=== PATIENT | female | born 1965 | race Caucasian/White ===

== ENCOUNTER → 2019-11-21 11:32 | Outpatient (BNVA) | payer MEDICAID, SELFPAY | PROVIDERS: Family Provider Registered Nurse; PCP Family Medicine; Visit Provider Nurse Practitioner | DX: F43.12 Post-traumatic stress disorder, chronic (principal); F45.0 Somatization disorder; F17.210 Nicotine dependence, cigarettes, uncomplicated | CPT/HCPCS: 99214 ==

== ENCOUNTER → 2020-02-13 07:55 | Outpatient (BNVA) | payer MEDICAID, SELFPAY | PROVIDERS: Family Provider Registered Nurse; PCP Family Medicine; Visit Provider Nurse Practitioner | DX: F43.12 Post-traumatic stress disorder, chronic (principal); F45.0 Somatization disorder | CPT/HCPCS: 99213 ==

== ENCOUNTER → 2020-05-15 10:00 | Outpatient (BNVA) | payer MEDICAID, SELFPAY | PROVIDERS: Family Provider Registered Nurse; PCP Family Medicine; Visit Provider Nurse Practitioner | DX: F43.12 Post-traumatic stress disorder, chronic (principal); F45.0 Somatization disorder; F17.210 Nicotine dependence, cigarettes, uncomplicated | CPT/HCPCS: 99213 ==

== ENCOUNTER → 2020-08-13 08:17 | Outpatient (BNVA) | payer MEDICAID, SELFPAY | PROVIDERS: Family Provider Registered Nurse; PCP Family Medicine; Visit Provider Nurse Practitioner | DX: F43.12 Post-traumatic stress disorder, chronic (principal); F45.0 Somatization disorder; F17.210 Nicotine dependence, cigarettes, uncomplicated | CPT/HCPCS: 99213 ==

== ENCOUNTER → 2020-10-06 00:01 | Outpatient (BNVA) | payer MEDICAID, SELFPAY | PROVIDERS: Family Provider Registered Nurse; PCP Family Medicine; Visit Provider Registered Nurse | DX: I10 Essential (primary) hypertension (principal); E78.5 Hyperlipidemia, unspecified; F17.210 Nicotine dependence, cigarettes, uncomplicated; Z79.899 Other long term (current) drug therapy; E03.9 Hypothyroidism, unspecified; M79.7 Fibromyalgia; K21.9 Gastro-esophageal reflux disease without esophagitis | CPT/HCPCS: 80053; 80061; 84443; 85025 ==

== ENCOUNTER → 2020-11-12 08:00 | Outpatient (BNVA) | payer MEDICAID, SELFPAY | PROVIDERS: Family Provider Registered Nurse; PCP Family Medicine; Visit Provider Nurse Practitioner | DX: F43.12 Post-traumatic stress disorder, chronic (principal); F45.0 Somatization disorder; F17.210 Nicotine dependence, cigarettes, uncomplicated | CPT/HCPCS: 99214 ==

== ENCOUNTER → 2020-11-28 10:08 | Outpatient (BNVA) | payer MEDICAID, SELFPAY | PROVIDERS: Family Provider Registered Nurse; PCP Family Medicine; Visit Provider Internal Medicine | DX: K21.9 Gastro-esophageal reflux disease without esophagitis (principal) | CPT/HCPCS: 87635 ==

== ENCOUNTER 2020-12-05 08:22 | Day surgery (SDC) | payer MEDICAID, SELFPAY ==
[2020-12-03 14:16] VITALS: BMI 29.3
[2020-12-05] MEDS: sodium chloride 0.9% 1,000 ML 30 ML IV (08:45)
--- NOTE | 2020-12-05 09:11 | W.PM.OPSUD ---
Surgery/Procedure H&P Update DATE OF PROCEDURE: December 05, 2020 DATE H&P PERFORMED: 11/27/20 PREOP DIAGNOSIS: t PLANNED PROCEDURE: Operation Date: 12/05/20 09:30 Proposed Procedures p EGD 53484 k21.9(Not Applicable) - Sincere Felton MD
--- NOTE | 2020-12-05 09:31 | P.ANESASSM_ITS ---
Pre-Anesthetic Assessment Pre-Anesthetic Assessment: Height/Weight: Height 1.73 m Weight 87.543 kg Preop Diagnosis: PUD Proposed Procedure: Operation Date: 12/05/20 09:30 Proposed Procedures p EGD 95456 k21.9(Not Applicable) - Sincere Felton MD Was Beta Calos taken within 24 hours: N/A Was Clonidine taken within 24 hours: N/A Social: Social History: Tobacco and No alcohol Exam: Pre-Anes Outpt Exam: alert, oriented x 3, clear to auscultation bilaterally and regular rate & rhythm Airway: Submandibular: WNL Cervical ROM: WNL MP: 2 History/ROS: No significant history except as noted Pulmonary: Pulmonary: Asthma and COPD CV/HEM: CV/HEM: HTN : : None reported Hepatic: Hepatic: None reported GI: GI: GERD Metabolic: Metabolic: Hyperlipidemia and Thyroid Musc/skel: Musc/skel: OA/DJD Comments: cervical fusion Neuropsych: Neuropsych: Anxiety and Neuropathy Anesthetic Plan: ASA status: 2 Anesthesia: Anesthesia Evaluation and MAC Risk of > 500 ml blood loss (7ml/kg in children): No PFSH Anesthesia PFSH: Medical History Chronic idiopathic urticaria Essential hypertension Gastroesophageal reflux disease Nicotine dependence, cigarettes, uncomplicated Post-traumatic stress disorder, chronic Somatization disorder Social History (Updated 11/27/20 @ 09:[address]) Smoking and tobacco status: current every day smoker cigarettes Packs smoked per day: 1.5 Smoking risk assessment/counseling performed?: Yes Tobacco counseling given: co unseling >3 minutes History of recent travel: No Data Anesthesia Cardiac Studies: No Data to Display
[2020-12-05 10:01] VITALS: BP 110/76; PULSE 79; RESP 16; TEMP 36.1; O2SAT 93
[2020-12-05 10:15] VITALS: BP 125/90; PULSE 80; RESP 16; O2SAT 93
--- NOTE | 2020-12-05 13:36 | ANE.PACU2 ---
Inpatient post-anesthesia follow up: Airway intact: Yes Vital signs: Temperature 97 F Pulse Rate 80 Respiratory Rate 16 Blood Pressure 125/90 Pulse Oximetry 93 Oxygen Delivery Me thod Room Air Oxygen Flow Rate Fraction of Inspir ed Oxygen Hydration adequate: Yes Nausea and vomiting: No Pain level: 1 Mental status: Baseline
[2020-12-06 11:58] LABS: H. Pylori / CLO Test Negative
== END 2020-12-05 10:25 | disposition home or self-care (01) ==
PROVIDERS: PCP Family Medicine; Visit Provider Internal Medicine
PROC: 0DJ08ZZ Inspection of Upper Intestinal Tract, Via Natural or Artificial Opening Endoscopic (ICD-10-PCS; CPT 43235; principal; 2020-12-05 09:30)
DX: K21.9 Gastro-esophageal reflux disease without esophagitis (principal); K22.70 Barrett's esophagus without dysplasia; L53.9 Erythematous condition, unspecified; K29.70 Gastritis, unspecified, without bleeding; L50.1 Idiopathic urticaria; I10 Essential (primary) hypertension; F17.210 Nicotine dependence, cigarettes, uncomplicated; J44.9 Chronic obstructive pulmonary disease, unspecified; E78.5 Hyperlipidemia, unspecified; M19.90 Unspecified osteoarthritis, unspecified site; Z98.1 Arthrodesis status
CPT/HCPCS: 43239; 87077; 88305; 96360; 96361; J2704; J7030

== ENCOUNTER → 2021-02-11 08:03 | Outpatient (BNVA) | payer MEDICAID, SELFPAY | PROVIDERS: PCP Family Medicine; Visit Provider Nurse Practitioner | DX: F43.12 Post-traumatic stress disorder, chronic (principal); F45.0 Somatization disorder; F17.210 Nicotine dependence, cigarettes, uncomplicated | CPT/HCPCS: 99214 ==

== ENCOUNTER → 2021-05-06 08:09 | Outpatient (BNVA) | payer MEDICAID, SELFPAY | PROVIDERS: PCP Registered Nurse; Visit Provider Nurse Practitioner | DX: F43.12 Post-traumatic stress disorder, chronic (principal); F45.0 Somatization disorder; F17.210 Nicotine dependence, cigarettes, uncomplicated | CPT/HCPCS: 99214 ==

== ENCOUNTER → 2021-08-11 08:20 | Outpatient (BNVA) | payer MEDICAID, SELFPAY | PROVIDERS: PCP Registered Nurse; Visit Provider Nurse Practitioner | DX: F43.12 Post-traumatic stress disorder, chronic (principal); F45.0 Somatization disorder; F17.210 Nicotine dependence, cigarettes, uncomplicated | CPT/HCPCS: 99214 ==

== ENCOUNTER → 2021-11-03 07:33 | Outpatient (BNVA) | payer MEDICAID, SELFPAY | PROVIDERS: PCP Registered Nurse; Visit Provider Nurse Practitioner | DX: F43.12 Post-traumatic stress disorder, chronic (principal); F45.0 Somatization disorder; F17.210 Nicotine dependence, cigarettes, uncomplicated | CPT/HCPCS: 99214 ==

== ENCOUNTER → 2021-11-10 15:24 | Outpatient (BNVA) | payer MEDICAID, SELFPAY | PROVIDERS: PCP Registered Nurse; Visit Provider Registered Nurse | DX: I10 Essential (primary) hypertension (principal); M25.9 Joint disorder, unspecified; Q79.60 Ehlers-Danlos syndrome, unspecified; E55.9 Vitamin D deficiency, unspecified; E03.9 Hypothyroidism, unspecified; E78.5 Hyperlipidemia, unspecified | CPT/HCPCS: 80053; 80061; 82306; 84443; 85025; 85651; 86038; 86140; 86431 ==

== ENCOUNTER → 2022-01-04 15:01 | Outpatient (BNVA) | payer MEDICAID, SELFPAY | PROVIDERS: PCP Registered Nurse; Visit Provider Registered Nurse | DX: J18.9 Pneumonia, unspecified organism (principal) | CPT/HCPCS: 85025 ==

== ENCOUNTER 2022-01-15 13:46 | Outpatient (CLI) | payer MEDICAID, SELFPAY ==
--- NOTE | 2022-01-15 13:51 | MM_ITS ---
WS: [id number] BILATERAL 3D TOMOSYNTHESIS DIGITAL SCREENING MAMMOGRAPHY WITH CAD CLINICAL INFORMATION: SCREENING HISTORY: Screening mammogram. No current complaints. COMPARISON: September 26, 2019 TECHNIQUE: Bilateral CC and MLO views. FINDINGS: Scattered fibroglandular densities bilaterally. A few incidental punctate calcifications. No suspicio us focal mass, asymmetry, calcifications, or architectural distortion. No evidence of malignancy. MM/[place] [id number] IMPRESSION: BI-RADS: 2-Benign FOLLOW UP: 1 Year Follow-up Recommend return to annual screening mammography.
== END 2022-01-15 13:47 | disposition home or self-care (01) ==
LOC: RADSHAW 13:48
PROVIDERS: PCP Registered Nurse; Visit Provider Registered Nurse
DX: Z12.31 Encounter for screening mammogram for malignant neoplasm of breast (principal)
CPT/HCPCS: 77063; 77067

== ENCOUNTER → 2022-01-29 14:49 | Outpatient (BNVA) | payer MEDICAID, SELFPAY | PROVIDERS: PCP Registered Nurse; Visit Provider Nurse Practitioner | DX: F43.12 Post-traumatic stress disorder, chronic (principal); F45.0 Somatization disorder; F17.210 Nicotine dependence, cigarettes, uncomplicated | CPT/HCPCS: 99214 ==

== ENCOUNTER → 2022-11-11 14:07 | Outpatient (BNVA) | payer MEDICAID, SELFPAY | PROVIDERS: PCP Registered Nurse; Visit Provider Nurse Practitioner Family | DX: R53.1 Weakness (principal); R26.89 Other abnormalities of gait and mobility; R47.89 Other speech disturbances | CPT/HCPCS: 80053 ==

== ENCOUNTER 2022-11-26 16:16 | Outpatient (CLI) | payer MEDICAID, SELFPAY ==
[2022-11-26] MEDS: iohexol 350 mg/mL 500 mL Btl (per mL) IV (16:57)
--- NOTE | 2022-11-26 17:00 | CT_ITS ---
WS: [id number] CT HEAD TECHNIQUE: Noncontrast and contrast-enhanced CT of the head. CLINICAL INFORMATION: R47.89 - Other speech disturbances COMPARISON: MRI 2017 DLP: 2005.[address] scans at [facility] use at least one of these dose optimization techniques: automated e xposure control; mA and/or kV adjustment per patient size (includes targeted exams where dose is matc hed to clinical indication); or iterative reconstruction. FINDINGS: No evidence of intracranial hemorrhage or mass effect. Ventricular system and basal cisterns are pope nt. Normal benson-white differentiation. Mild small vessel changes. No significant parenchymal volume l oss. Paranasal sinuses and mastoid air cells are well aerated. No hydrocephalus. No abnormal enhancing int racranial lesions. Incidental prominent perivascular space RIGHT basal ganglia is unchanged since 201 7. No other suspicious findings. CT/CT head wo/w con [id number] IMPRESSION: 1. No evidence of intracranial hemorrhage or mass effect. 2. Mild small vessel changes with no significant parenchymal volume loss. 3. No abnormal intracranial enhancement or enhancing lesions. 4. No other suspicious findings.
== END 2022-11-26 16:17 | disposition home or self-care (01) ==
LOC: RAD 16:16
PROVIDERS: PCP Registered Nurse; Visit Provider Nurse Practitioner Family
DX: R47.89 Other speech disturbances (principal); R26.89 Other abnormalities of gait and mobility; R53.1 Weakness
CPT/HCPCS: 70470; Q9967

== ENCOUNTER → 2022-12-07 10:04 | Outpatient (BNVA) | payer MEDICAID, SELFPAY | PROVIDERS: PCP Registered Nurse; Visit Provider Nurse Practitioner | DX: Z79.899 Other long term (current) drug therapy (principal) | CPT/HCPCS: 80061; 83036 ==

== ENCOUNTER → 2023-02-21 09:09 | Outpatient (BNVA) | payer MEDICAID, SELFPAY | PROVIDERS: PCP Registered Nurse; Visit Provider Psychiatry & Neurology Neurology | DX: R41.3 Other amnesia (principal); R26.89 Other abnormalities of gait and mobility; R53.1 Weakness; R55 Syncope and collapse; R42 Dizziness and giddiness; R47.89 Other speech disturbances; H53.8 Other visual disturbances; F17.210 Nicotine dependence, cigarettes, uncomplicated; I20.9 Angina pectoris, unspecified; Z98.1 Arthrodesis status; J44.9 Chronic obstructive pulmonary disease, unspecified; E03.9 Hypothyroidism, unspecified; Z87.311 Personal history of (healed) other pathological fracture | CPT/HCPCS: 99203 ==

== ENCOUNTER 2023-03-09 13:52 | Outpatient (CLI) | payer MEDICAID, SELFPAY ==
--- NOTE | 2023-03-09 14:45 | USCV_ITS ---
Itzel St Age: 58 Gender: F : 1965 Exam Date: 03/09/2023 14:16 Ordering Phys: Jenniffer Jarvis MD Technologist: LESVIA [place] [facility] [place]: [place] Loss Risk Factors: Previous Vascular Surgery: Right Brachial BP: / Left Brachial BP: / Right Left Velocity (cm/s) Spectral Plaque Velocity (cm/s) Spectral Plaque Syst/Diast Broadening Syst/Diast Broadening 51.90/ 13.10 Prox CCA 71.60 / 20.40 57.00/ 12.90 Mid CCA 64.20 / 19.50 51.30/ 13.10 Distal CCA 50.10 / 19.90 42.10/ 16.40 Prox ICA 61.80 / 28.30 62.40/ 32.90 Mid ICA 74.90 / 28.90 58.80/ 30.20 Distal ICA 48.90 / 22.80 63.10 ECA 76.90 1.09 ICA/CCA 1.05 Antegrade Vertebral Antegrade 46.80/ 18.40 cm/s 38.50/ 20.80 cm/s Tri Subclavian Tri 86.30 94.00 CONCLUSIONS Right ICA stenosis <50%. Mild atheromatous plaque right carotid bulb/ICA. Left ICA stenosis <50%. Mild atheromatous plaque left carotid bulb/ICA. Normal antegrade Doppler flow noted in the right vertebral artery. Normal antegrade Doppler flow noted in the left vertebral artery. Ritchie Roland MD (Electronically Signed) Final Date: 09 March 2023 17:33 S
== END 2023-03-09 13:53 | disposition home or self-care (01) ==
LOC: RAD 13:56
PROVIDERS: PCP Registered Nurse; Visit Provider Specialist
DX: R41.3 Other amnesia (principal); I65.23 Occlusion and stenosis of bilateral carotid arteries
CPT/HCPCS: 93880

== ENCOUNTER 2023-03-24 15:19 | Outpatient (CLI) | payer MEDICAID, SELFPAY ==
--- NOTE | 2023-03-24 16:00 | MR_ITS ---
WS: [id number] MRI HEAD WITH CONTRAST TECHNIQUE: Sagittal T1, T2 axial, T2 axial FLAIR, axial susceptibility weighted imaging, axial diffus ion weighted images, and coronal T2 images were obtained. Pre and post-T1 axial and post T1 coronal i mages. ADC and FSPGR images. CLINICAL INFORMATION: R41.3 - Other amnesia COMPARISON: CT November 26, 2022 and MRI 2017 FINDINGS: No evidence of restricted diffusion to suggest acute ischemia. Ventricular system and basal cisterns are patent. Mild patchy supratentorial white matter changes likely due to small vessel disease in a p atient this age. Mild parenchymal volume loss. Small vessel changes have progressed slightly compared to 2017. Parenchymal volume loss appears progressed. Normal posterior fossa. Normal vascular flow voids at the skull base. No extra-axial fluid collection s. No evidence of mass or mass effect. Paranasal sinuses and mastoid air cells are well aerated. Mild mucosal thickening mastoid air cells bilaterally. Normal posterior nasopharynx. No hemosiderin on the susceptibly weighted images. Normal optic chiasm and pituitary infundibulum. Ca vernous sinuses and Meckel's cave appear normal. Temporal lobes and hippocampal formations are normal in appearance. No abnormal gadolinium enhancement. No enhancing intracranial lesions. Normal visualized dural venous sinuses. MR/MR head wo/w con [id number] IMPRESSION: 1. No evidence of restricted diffusion to suggest acute ischemia. 2. Mild patchy supratentorial white matter changes mainly in a periventricular distribution minimally progressed compared to 2017. Mild parenchymal volume lo ss has progressed. 3. No hemosiderin on susceptibly weighted images. 4. No abnormal gadolinium enhancement. 5. Mild mucosal thickening mastoid air cells. 6. No other suspicious findings.
[2023-03-24] MEDS: gadobenate dimeglumine 20 mL vial IV (16:46)
[2023-03-24 17:20] LABS: INR 0.93 (0.8-1.2)
[2023-03-24 17:47] LABS: 25 Hydroxy Vitamin D 28 ng/mL (30-100); Homocysteine 10.58; Magnesium 2.3 mg/dL (1.7-2.3); Vitamin B12 812 pg/mL (232-1245)
[2023-03-24 18:45] LABS: Folate Level > 20.0 ng/mL (4.8-37.3)
[2023-03-28 13:33] LABS: Anti-Double Strand DNA AB 2 IU/mL
[2023-03-29 20:24] LABS: Lupus DRVVT 1:1 Mix NOT CORRECTED (CORRECTED); Lupus DRVVT Confirm POSITIVE (NEGATIVE)
[2023-03-29 23:29] LABS: PROTEIN S, ACTIVITY 77 % normal (60-140); PTT-LA-Screen 37 sec (< OR = 40)
[2023-03-30 07:05] LABS: Methylmalonic Acid 268 nmol/L (87-318)
[2023-03-30 08:50] LABS: Treponema pallidum Ab NON-REACTIVE (NON-REACTIVE)
[2023-03-31 07:39] LABS: PROTEIN C, ACTIVITY 138 % normal (70-180)
[2023-03-31 07:51] LABS: Antithrombin III Activity 150 % normal (80-135)
[2023-03-31 15:15] LABS: Beta 2 Glycoprotein IGA 18.7 U/mL (<20.0); Beta 2 Glycoprotein IGM 81.9 U/mL (<20.0)
[2023-03-31 18:00] LABS: PROTHROMBIN (FACTOR II) 20210G NEGATIVE
[2023-03-31 19:30] LABS: Factor 5 Leiden Mutation NEGATIVE
== END 2023-03-24 15:20 | disposition home or self-care (01) ==
PROVIDERS: Psychiatry & Neurology Neurology; PCP Registered Nurse; Visit Provider Specialist
DX: R26.89 Other abnormalities of gait and mobility (principal); R53.1 Weakness; R41.3 Other amnesia; R55 Syncope and collapse
CPT/HCPCS: 36415; 70553; 81241; 82306; 82607; 82746; 83090; 83735; 83921; 85210; 85300; 85303; 85306; 85610; 85613; 85730; 86146; 86147; 86225; 86780; A9577

== ENCOUNTER → 2023-03-28 12:43 | Outpatient (BNVA) | payer MEDICAID, SELFPAY | PROVIDERS: PCP Registered Nurse; Visit Provider Psychiatry & Neurology Neurology | DX: R55 Syncope and collapse (principal) | CPT/HCPCS: 95813 ==

== ENCOUNTER 2023-04-13 13:41 | Oncology outpatient (recurring) (ONCR) | payer MEDICAID, SELFPAY | END 2023-05-12 23:59 | disposition home or self-care (01) | PROVIDERS: PCP Registered Nurse; Visit Provider Internal Medicine Medical Oncology | DX: R41.3 Other amnesia (principal); R06.09 Other forms of dyspnea; H54.7 Unspecified visual loss; R26.89 Other abnormalities of gait and mobility; D68.59 Other primary thrombophilia; R55 Syncope and collapse; R42 Dizziness and giddiness; Q79.60 Ehlers-Danlos syndrome, unspecified; F17.210 Nicotine dependence, cigarettes, uncomplicated; R60.0 Localized edema; I20.9 Angina pectoris, unspecified; Z98.1 Arthrodesis status; Z98.890 Other specified postprocedural states; R76.0 Raised antibody titer | CPT/HCPCS: 99203; 99212 ==

== ENCOUNTER → 2023-09-01 15:28 | Outpatient (BNVA) | payer MEDICAID, SELFPAY | PROVIDERS: PCP Registered Nurse; Visit Provider Registered Nurse | DX: I10 Essential (primary) hypertension (principal); E03.9 Hypothyroidism, unspecified; Z12.31 Encounter for screening mammogram for malignant neoplasm of breast; J44.9 Chronic obstructive pulmonary disease, unspecified | CPT/HCPCS: 80053; 80061; 84443; 85025 ==

== ENCOUNTER 2024-03-01 18:07 | Inpatient (IN) | payer MEDICAID, SELFPAY ==
[2024-03-01 18:14] VITALS: BP 139/112; PULSE 91; RESP 24; TEMP 36.9; O2SAT 92; BMI 27.3
--- NOTE | 2024-03-01 18:17 | ECG_ITS ---
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 Measurements Intervals [place] Rate: 90 P: 69 AK: 196 QRS: 30 QRSD: 70 T: 53 QT: 339 QTc: 416 Interpretive Statements SINUS RHYTHM MINIMAL ST DEPRESSION [0.025+ mV ST DEPRESSION] Compared to ECG 12/10/2018 21:57:12 ST (T wave) deviation now present Myocardial infarct finding no longer present Electronically Signed On 03-02-2024 13:39:26 CDT by Piter Epstein M.D. [email or web address]/store/[id number] f
--- NOTE | 2024-03-01 18:19 | XRR_ITS ---
PROCEDURE INFORMATION: Exam: XR Chest Exam date and time: 03/01/2024 6:48 PM Age: 59 years old Clinical indication: Cough and dyspnea; Patient HX: Smoker; Additional info: SOB TECHNIQUE: Imaging protocol: Radiologic exam of the chest. Views: 1 view. COMPARISON: CT angio chest PE protcl [id number] 12/10/2018 11:18 PM FINDINGS: Lungs: Increased interstitial markings in the lung bases are nonspecific but can be seen the setting of bronchitis, pulmonary vascular congestion, viral infection and small-vessel airways disease. Pleural spaces: Unremarkable. No pleural effusion. No pneumothorax. Heart/Mediastinum: Unremarkable. No cardiomegaly. Bones/joints: Unremarkable. XR/XR chest 1V portable [id number] IMPRESSION: Increased interstitial markings in the lung bases are nonspecific but can be seen the setting of bronchitis, pulmonary vascular congestion, viral infection and small-vessel airways disease.
[2024-03-01 18:21] VITALS: PULSE 92; RESP 16; O2SAT 92
--- NOTE | 2024-03-01 18:21 | ED_ITS ---
HPI - SOB/Dyspnea 2 General: Chief Complaint: Shortness of Breath/Dyspnea Stated Complaint: SOB Time Seen by Provider: 03/01/24 18:14 Source: patient Mode of arrival: ambulatory Limitations: no limitations History of Present Illness: HPI Narrative: 59-year-old female has a history of COPD states that over the last week and a half she has been having cough congestion and chest pains been sharp with increased wheezing and shortness of breath. Patient here is 98% on room air. She denies any fevers denies any vomiting or diarrhea. Associated symptoms: Reports chest pain; Deny abdominal pain, fever(s), nausea or vomiting Review of Systems 2 Const: Denies: fever(s), chills, body aches or change in appetite Eyes: Denies: blurry vision or eye discomfort ENMT: Denies: throat pain or dental pain Card: Reports: chest pain Resp: Reports: dyspnea, non-productive cough and wheezing GI: Denies: abdominal pain, nausea, vomiting or diarrhea : Denies: dysuria Musc: Denies: neck pain or back pain Skin/Breast: Denies: rash Neuro: Denies: headache(s) PFSH ED 2 PFSH: Medical History On combination antipsychotic drug therapy Marcos-Danlos disease Psychiatric care Hypothyroid Gastroesophageal reflux disease Chronic idiopathic urticaria Essential hypertension Nicotine dependence, cigarettes, uncomplicated Somatization disorder Post-traumatic stress disorder, chronic Family History Grandmother Dementia AD (Alzheimer's disease) Lung disease Diabetes Mother Dementia AD (Alzheimer's disease) Stroke Lung disease Diabetes Brother CAD (coronary artery disease) Other Suicide Social History Smoking and tobacco/nicotine status: current every day tobacco/nicotine user cigarettes Packs smoked per day: 1.5 Substance/Drug Use: never Adopted: No Caregiver/support person: No Lives independently: No Household members: spouse Sexually active: Yes Do you think of yourself as: Straight/Heterosexual Current gender identity: Female Physical Exam 2 Const: COMMON NORMALS: no acute distress, patient oriented x3 and healthy appearing HENMT: COMMON NORMALS: normocephalic and atraumatic HEAD & SCALP: n ormocephalic and atraumatic Eye: COMMON NORMALS: Equal, round and reactive pupils present and EOMs intact bilaterally PUPIL: Yes Equal, round and reactive pupils present Neck/C-Spine: COMMON NORMALS: full ROM and supple Chest: COMMONS NORMALS: normal inspection of the chest Resp: COMMON NORMALS: No retractions and No use of accessory muscles A USCULTATION: wheezes Cardio: COMMON NORMALS: regular rate, regular rhythm and No murmurs present (Cardio) RATE: regular rate RHYTHM: regular rhythm GI: COMMON NORMALS: Normal to inspection, nondistended, normoactive bowel sounds present, Soft to palpation, non-tender and no masses PALPATION: Yes Soft to palpation Extremity: COMMON NORMALS: normal to inspection and full ROM Neuro: COMMON NORMALS: patient oriented x3, moves all extremities and no focal motor deficits Psych: COMMON NORMALS: mental status grossly normal, Normal thought process present and cooperative THOUGHT PROCESS: Normal thought process present Skin: COMMON NORMALS: no rashes or lesions noted and no wounds GENERAL SKIN EXAM: no rashes or lesions noted Course 2 Vital Signs: Vital signs: Vital Signs Temperature 98.4 F 03/01/24 18:14 Pulse Rate 93 03/01/24 18:44 Respiratory Rate 16 03/01/24 18:21 Blood Pressure 133/103 03/01/24 18:44 Pulse Oximetry 90 03/01/24 18:44 Oxygen Delivery Me thod Room Air 03/01/24 18:44 MDM - SOB/Dyspnea Medical Decision Making Patient presents here with COPD exacerbation she is hypoxic here requiring oxygen does not wear oxygen at baseline spoke to the hospitalist and will admit at this time. Medical Records I reviewed the patient's medical records. Lab Data I reviewed the patient's lab results. 03/01/24 18:20 03/01/24 18:20 Labs/Radiology: Radiology Impressions Chest X-Ray 03/01/24 18:19 IMPRESSION: Increased interstitial markings in the lung bases are nonspecific but can be seen the setting of bronchitis, pulmonary vascular congestion, viral infection and small-vessel airways disease. Laboratory Results WBC 7.48 10^3/uL (3.29-11.43) 03/01/24 18:20 RBC 5.28 10^6/uL (3.85-5.65) 03/01/24 18:20 Hgb 13.40 g/dL (11.27-16.99) 03/01/24 18:20 Hct 41.4 % (36-47) 03/01/24 18:20 MCV 78.4 fl (85-98) L 03/01/24 18:20 MCH 25.4 pg (27-33) L 03/01/24 18:20 MCHC 32.4 g/dL (30-55) 03/01/24 18:20 RDW 18.7 % (12.1-15.1) H 03/01/24 18:20 Plt Count 270 10^3/cmm (157-399) 03/01/24 18:20 MPV 9.6 fL (7.4-10.4) 03/01/24 18:20 Neut % (Auto) 58.6 % 03/01/24 18:20 Lymph % (Auto) 30.3 % 03/01/24 18:20 [place] % (Auto) 7.6 % 03/01/24 18:20 Eos % (Auto) 2.7 % 03/01/24 18:20 Baso % (Auto) 0.7 % 03/01/24 18:20 Neut # (Auto) 4.38 10^3/uL (1.8-7.7) 03/01/24 18:20 Lymph # (Auto) 2.3 10^3/uL (0.8-4.8) 03/01/24 18:20 [place] # (Auto) 0.6 10^3/uL (0.2-0.9) 03/01/24 18:20 Eos # (Auto) 0.2 10^3/uL (0.0-0.8) 03/01/24 18:20 Baso # (Auto) 0.1 10^3/uL (0.0-0.1) 03/01/24 18:20 Nucleated RBC % (auto) 0 % 03/01/24 18:20 Nucleated RBCs # 0.0 /100WBC 03/01/24 18:20 Sodium 139 mmol/L (136-145) 03/01/24 18:20 Potassium 3.9 mmol/L (3.5-5.1) 03/01/24 18:20 Chloride 102 mmol/L (98-107) 03/01/24 18:20 Carbon Dioxide 23 mmol/L (22-29) 03/01/24 18:20 Anion Gap 17.9 (5-19) 03/01/24 18:20 BUN 9 mg/dL (8-23) 03/01/24 18:20 Creatinine 0.7 mg/dL (0.5-0.9) 03/01/24 18:20 GFR Calculation 85.4 mL/min (90-130) L 03/01/24 18:20 Glucose 122 mg/dL (65-115) H 03/01/24 18:20 Calculated Osmolality 288 mOsm/kg (285-295) 03/01/24 18:20 Calcium 9.6 mg/dL (8.5-10.5) 03/01/24 18:20 Total Bilirubin 0.3 mg/dL (0.15-1.2) 03/01/24 18:20 AST 25 U/L (0-32) 03/01/24 18:20 ALT 22 U/L (0-33) 03/01/24 18:20 Alkaline Phosphatase 108 U/L (35-105) H 03/01/24 18:20 Troponin T Baseline 9 ng/L (0-10) 03/01/24 18:20 Troponin T 120 Minute 8.63 ng/L (0-10) 03/01/24 20:06 Delta Troponin T -0.37 ABS# (0-10) L 03/01/24 20:06 NT-Pro-B Natriuret Pep 104 pg/mL (0-125) 03/01/24 18:20 Total Protein 7.6 g/dL (6.6-8.7) 03/01/24 18:20 Albumin 4.5 g/dL (3.5-5.2) 03/01/24 18:20 Globulin 3.1 g/dL (1.3-4.6) 03/01/24 18:20 All radiology interpretation(s) finalized by discharge EKG Data EKG 1: I personally reviewed and interpreted this EKG as follows: EKG Interpretation Date: 03/01/24 EKG interpretation time: 18:17 Interpretation: nsr hr [address] elevation qrs 70 qtc 387 EKG 2: I personally reviewed and interpreted this EKG as follows: EKG Interpretation Date: 03/01/24 EKG interpretation time: 18:17 Interpretation: nsr hr [address] elevation qrs 70 qtc 387 Discharge Plan Discharge Patient Disposition: Admitted As Inpatient Clinical Impression: Acute exacerbation of chronic obstructive airways disease, Acute respiratory failure with hypoxia Condition: Stable Coding Level of Care Code ED Tool And Die Supervisor for Daina Freeman
[2024-03-01] MEDS: ipratropium-albuterol 3 mL Neb INHALATION (18:23)
[2024-03-01] MEDS: albuterol 2.5 mg/3 mL Neb INHALATION (18:23)
[2024-03-01 18:32] VITALS: PULSE 92
[2024-03-01 18:34] LABS: Basophils # 0.1 10^3/uL (0.0-0.1); Basophils % 0.7 %; Eosinophils # 0.2 10^3/uL (0.0-0.8); Eosinophils % 2.7 %; Hematocrit 41.4 % (36-47); Lymphocytes # 2.3 10^3/uL (0.8-4.8); Lymphocytes % 30.3 %; Mean Corpuscular HGB Conc 32.4 g/dL (30-55); Mean Corpuscular Hemoglobin 25.4 pg (27-33); Mean Corpuscular Volume 78.4 fl (85-98); Mean Platelet Volume 9.6 fL (7.4-10.4); Monocytes # 0.6 10^3/uL (0.2-0.9); Monocytes % 7.6 %; Neutrophils # 4.38 10^3/uL (1.8-7.7); Neutrophils % 58.6 %; Nucleated Red Blood Cells % 0 %; Platelet Count 270 10^3/cmm (157-399); Red Blood Count 5.28 10^6/uL (3.85-5.65); Red Cell Distribution Width 18.7 % (12.1-15.1); White Blood Count 7.48 10^3/uL (3.29-11.43)
[2024-03-01] MEDS: aspirin 325 mg Tablet PO (18:38)
[2024-03-01] MEDS: methylPREDNISolone sod succ 125 mg/2 mL INJ IV (18:38)
[2024-03-01 18:44] VITALS: BP 133/103; PULSE 93; O2SAT 90
[2024-03-01 18:54] LABS: Troponin(5th) Baseline 9 ng/L (0-10)
[2024-03-01 19:17] LABS: Alanine Aminotransferase 22 U/L (0-33); Albumin Level 4.5 g/dL (3.5-5.2); Alkaline Phosphatase 108 U/L (35-105); Anion Gap 17.9 (5-19); Aspartate Amino Transferase 25 U/L (0-32); Blood Urea Nitrogen 9 mg/dL (8-23); Calcium 9.6 mg/dL (8.5-10.5); Carbon Dioxide 23 mmol/L (22-29); Chloride 102 mmol/L (98-107); Globulin 3.1 g/dL (1.3-4.6); Glomerular Filtration Rate 85.4 mL/min (90-130); Glucose 122 mg/dL (65-115); NT Pro B Type Natriuretic Pept 104 pg/mL (0-125); Osmolality Calculated 288 mOsm/kg (285-295); Potassium 3.9 mmol/L (3.5-5.1); Sodium 139 mmol/L (136-145); Total Bilirubin 0.3 mg/dL (0.15-1.2); Total Protein 7.6 g/dL (6.6-8.7)
[2024-03-01 20:31] LABS: Troponin 5 2HR 8.63 ng/L (0-10)
[2024-03-01 20:32] LABS: Troponin 5 2HR Delta -0.37 ABS# (0-10)
--- NOTE | 2024-03-01 20:34 | ECG_ITS ---
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 Measurements Intervals [place] Rate: 75 P: 48 AR: 207 QRS: 28 QRSD: 77 T: 40 QT: 374 QTc: 420 Interpretive Statements SINUS RHYTHM Compared to ECG 03/01/2024 18:17:21 ST (T wave) deviation no longer present Electronically Signed On 03-02-2024 14:00:06 CDT by Piter Epstein M.D. [email or web address] [email or web address] fair[facility] hospitalAOT [employer]/store/OM/[id number]
--- NOTE | 2024-03-01 20:36 | P.HP_ITS ---
Providers/Chief Complaint 2 Primary Care Provider: DENYS Carmona Chief Complaint: SOB History of Present Illness Itzel St is a 59-year-old female with history of COPD,hypertension, hypothyroidism, who presents for further evaluation of worsening shortness of breath, cough, congestion and subjective fever. She does report some chest discomfort in the past week. She denies nausea, vomiting, abdominal pain, dizziness, loss of consciousness or any other symptoms. In the ER, patient was noted to have signs of COPD exacerbation, she received steroids. Chest x-ray showed possible pneumonia , she was given ceftriaxone and azithromycin. Review of Systems 2 Const: Denies: fever(s), chills, body aches or change in appetite Eyes: Denies: blurry vision or eye discomfort ENMT: Denies: throat pain or dental pain Card: Reports: chest pain Resp: Reports: dyspnea, non-productive cough and wheezing GI: Denies: abdominal pain, nausea, vomiting or diarrhea : Denies: dysuria Musc: Denies: neck pain or back pain Skin/Breast: Denies: rash Neuro: Denies: headache(s) Medications/Allergies Home Medications Medication Instructions Recorded Confirmed Last Taken Type loratadine 10 mg tablet 20 mg (2 x 10 mg) PO DAILY #60 tabs 11/27/20 02/14/24 Unknown Rx bisacodyl 5 mg tablet,delayed See Rx Instructions .Route 01/28/22 02/14/24 Unknown Rx release .COMPLEX #30 tabs pantoprazole 40 mg tablet,delayed 40 mg PO DAILY #90 tabs 06/02/23 02/14/24 Unknown Rx release cholecalciferol (vitamin D3) 625 50,000 unit PO .weekly #14 caps 08/29/23 02/14/24 Unknown Rx mcg (25,000 unit) capsule amlodipine 5 mg tablet See Rx Instructions .Route 09/01/23 02/14/24 Unknown Rx .COMPLEX #90 tabs pravastatin 40 mg tablet See Rx Instructions .Route 09/01/23 02/14/24 Unknown Rx .COMPLEX #90 tabs albuterol sulfate 90 mcg/actuation See Rx Instructions .Route 11/09/23 02/14/24 Unknown Rx aerosol inhaler .COMPLEX #18 grams Spiriva with HandiHaler 18 mcg and See Rx Instructions .Route 12/22/23 02/14/24 Unknown Rx inhalation capsules (tiotropium .COMPLEX #30 caps bromide) isosorbide mononitrate 30 mg See Rx Instructions .Route 12/30/23 02/14/24 Unknown Rx tablet,extended release 24 hr .COMPLEX #90 tabs clonazepam 1 mg tablet 1 mg PO QDAY PRN anxiety #15 tabs 01/25/24 02/14/24 Unknown Rx quetiapine 200 mg tablet (Seroquel) 200 mg PO .QHS #30 tabs 01/25/24 02/14/24 Unknown Rx bupropion HCl 150 mg 24 hr tablet, 150 mg PO QAM #30 tabs 01/27/24 02/14/24 Unknown Rx extended release (Wellbutrin XL) nitroglycerin 0.3 mg sublingual See Rx Instructions .Route 01/27/24 02/14/24 Unknown Rx tablet .COMPLEX #100 tabs hydroxyzine HCl 25 mg tablet 25 mg PO DAILY PRN anxiety #30 tabs 02/14/24 02/14/24 Unknown Rx montelukast 10 mg tablet See Rx Instructions .Route 02/21/24 Unknown Rx .COMPLEX #90 tabs celecoxib 100 mg capsule See Rx Instructions .Route 02/22/24 Unknown Rx .COMPLEX #60 caps gabapentin 600 mg tablet See Rx Instructions .Route 02/22/24 Unknown Rx .COMPLEX #90 tabs levothyroxine 50 mcg tablet See Rx Instructions .Route 03/01/24 Unknown Rx .COMPLEX #30 tabs Allergies Allergy/AdvReac Type Severity Reaction Status Date / Time adhesive tape Allergy Mild unknown Verified 02/14/24 15:25 buspirone Allergy Mild ALGY-Rash Verified 02/14/24 15:25 soap Allergy Mild unknown Verified 02/14/24 15:25 sumatriptan [From Imitrex] Allergy unknown Verified 02/14/24 15:25 venlafaxine [From Effexor] Allergy unknown Verified 02/14/24 15:25 PFSH Acute 2 PFSH: Medical History On combination antipsychotic drug therapy Marcos-Danlos disease Psychiatric care Hypothyroid Gastroesophageal reflux disease Chronic idiopathic urticaria Essential hypertension Nicotine dependence, cigarettes, uncomplicated Somatization disorder Post-traumatic stress disorder, chronic Family History Grandmother Dementia AD (Alzheimer's disease) Lung disease Diabetes Mother Dementia AD (Alzheimer's disease) Stroke Lung disease Diabetes Brother CAD (coronary artery disease) Other Suicide Social History Smoking and tobacco/nicotine status: current every day tobacco/nicotine user cigarettes Packs smoked per day: 1.5 Substance/Drug Use: never Adopted: No Caregiver/support person: No Lives independently: No Household members: spouse Sexually active: Yes Do you think of yourself as: Straight/Heterosexual Current gender identity: Female Vitals/I&O/Wt Last Vital Signs Temp 98.4 F 03/01/24 18:14 Pulse 93 03/01/24 18:44 Resp 16 03/01/24 18:21 BP 133/103 03/01/24 18:44 Pulse Ox 90 03/01/24 18:44 O2 Del Method Room Air 03/01/24 18:44 Weight last 48 hrs Weight 81.647 kg Physical Exam 2 Const: COMMON NORMALS: no acute distress, patient oriented x3 and alert HENMT: COMMON NORMALS: normocephalic, atraumatic, external ears normal, Normal external nose present, moist oral mucous membranes and oropharynx normal HEAD & SCALP: normocephalic and atraumatic NOSE: Normal external nose present E XTERNAL EAR: Yes external ears normal Eye: COMMON NORMALS: Equal, round and reactive pupils present, EOMs intact bilaterally, conjunctivae normal and no scleral icterus CONJUNCTIVA: Yes conjunctivae normal PUPIL: Yes Equal, round and reactive pupils present Neck/C-Spine: COMMON NORMALS: full ROM, no lymphadenopathy and no JVD Chest: COMMONS NORMALS: normal inspection of the chest Resp: OTHER: Severely diminished breath sounds bilaterally, mild expiratory wheezes, no crackles Cardio: COMMON NORMALS: no JVD, regular rate, regular rhythm, S1 normal heart sound present and S2 normal heart sound present RATE: regular rate RHYTHM: regular rhythm HEART SOUNDS: S1 normal heart sound present and S2 normal heart sound present GI: COMMON NORMALS: Normal to inspection, nondistended, normoactive bowel sounds present, Soft to palpation and non-tender PALPATION: Yes Soft to palpation Extremity: COMMON NORMALS: normal to inspection and no pedal edema Neuro: COMMON NORMALS: patient oriented x3 SENSORIUM/ORIENTATION: Yes alert OTHER: No gross focal deficits Data 03/02/24 02:40 03/02/24 01:04 Micro: Microbiology 03/01/24 18:19 Blood Culture - Preliminary Blood SPECIMEN COLLECTED 03/01/24 18:10 Blood Culture - Preliminary Blood SPECIMEN COLLECTED A&P Assessment and plan (1) Acute respiratory failure with hypoxia: - In the setting of COPD exacerbation, possible pneumonia -Patient requiring 2 L supplemental oxygen -Wean oxygen as tolerated -Check dimer (2) Acute exacerbation of chronic obstructive airways disease: # Suspected pneumonia - Patient's lungs sounds severely diminished -Chest x-ray shows increased interstitial markings in the lung bases which is nonspecific, may be due to viral pneumonia versus small vessel airway disease vs bronchitis -Check respiratory viral panel, COVID-19, influenza screen -Check procalcitonin -Continue ceftriaxone and azithromycin started in the ER -Solu-Medrol 40 mg every 6 hours, DuoNebs -Continue to monitor closely (3) Hypothyroid: - Resume levothyroxine Qualifiers: Hypothyroidism type: acquired Qualified Code(s): E03.9 - Hypothyroidism, unspecified (4) Essential hypertension: - Resume antihypertensives (5) Post-traumatic stress disorder, chronic: - Resume antipsychotics Attestations 2 Medical Necessity Statement*: Patient admitted for COPD exacerbation, her care is expected to cross greater than 2 midnights Coding Level of Care Code Acute Code for Chg Fwd Diagnoses Acute respiratory failure with hypoxia J96.01 Acute exacerbation of chronic obstructive airways disease J44.1 Acquired hypothyroidism E03.9 Hypothyroidism type: acquired Essential hypertension I10 Post-traumatic stress disorder, chronic F43.12
[2024-03-01] MEDS: cefTRIAXone 1,000 MG in sodium chloride 0.9% (plus) 50 ML 100 MG IV (21:15)
[2024-03-01] MEDS: azithromycin 500 MG in sodium chloride 0.9% 250 ML 250 MG IV (21:43)
[2024-03-01 22:10] VITALS: BP 168/94; PULSE 74; RESP 18; O2SAT 92
[2024-03-01 22:33] LABS: D Dimer 0.88 ug/mLFEU (0-0.59)
[2024-03-01 22:40] LABS: Procalcitonin 0.03 ng/mL (0-0.5)
[2024-03-01] MEDS: enoxaparin 40 mg/0.4 mL Syringe SUBCUT (23:26)
[2024-03-01] MEDS: quetiapine 100 mg Tablet 200 MG PO (23:26)
[2024-03-01] MEDS: isosorbide mononitrate ER 30 mg Tablet PO (23:27)
[2024-03-01 23:45] VITALS: BMI 29.3
[2024-03-02] VITALS (16 sets, daily range): BP systolic 139–156; BP diastolic 8–95; PULSE 78–104; RESP 15–20; TEMP 36.7–37.4; O2SAT 88–95
[2024-03-02] MEDS: methylPREDNISolone sod succ 40 mg/mL INJ IVP ×4 (00:37→18:11)
[2024-03-02 01:51] LABS: Troponin 5 6HR 6.87 ng/L (0-10)
[2024-03-02 01:53] LABS: Blood Urea Nitrogen 8 mg/dL (8-23); Calcium 9.1 mg/dL (8.5-10.5); Carbon Dioxide 24 mmol/L (22-29); Chloride 105 mmol/L (98-107); Creatinine Clr Calc Pharmacy 102.3049; Glomerular Filtration Rate 85.4 mL/min (90-130); Glucose 228 mg/dL (65-115); Osmolality Calculated 300 mOsm/kg (285-295); Sodium 142 mmol/L (136-145)
[2024-03-02 02:02] LABS: Troponin 5 6HR Delta -2.13 ng/L (0-12)
[2024-03-02 02:04] LABS: Anion Gap 17.5 (5-19); Potassium 4.5 mmol/L (3.5-5.1)
--- NOTE | 2024-03-02 02:04 | ECG_ITS ---
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 Measurements Intervals [place] Rate: 85 P: 66 [place]: 194 QRS: 70 QRSD: 79 T: 70 QT: 371 QTc: 443 Interpretive Statements SINUS RHYTHM NONSPECIFIC T-WAVE ABNORMALITY Compared to ECG 03/01/2024 20:34:24 T-wave abnormality now present Electronically Signed On 03-02-2024 14:01:14 CDT by Piter Epstein M.D. [id number]
[2024-03-02] MEDS: acetaminophen 325 mg Tablet 650 MG PO ×2 (02:17→19:55)
[2024-03-02] MEDS: CLONazepam 1 mg Tablet PO ×2 (02:17→20:59)
[2024-03-02 02:55] LABS: Basophils % 0.1 %; Lymphocytes # 0.7 10^3/uL (0.8-4.8); Lymphocytes % 11.1 %; Mean Corpuscular HGB Conc 32.1 g/dL (30-55); Mean Corpuscular Hemoglobin 25.6 pg (27-33); Mean Corpuscular Volume 79.9 fl (85-98); Mean Platelet Volume 9.9 fL (7.4-10.4); Monocytes % 0.4 %; Neutrophils # 5.88 10^3/uL (1.8-7.7); Neutrophils % 88.1 %; Nucleated Red Blood Cells % 0 %; Platelet Count 236 10^3/cmm (157-399); Red Blood Count 4.88 10^6/uL (3.85-5.65); Red Cell Distribution Width 18.6 % (12.1-15.1); White Blood Count 6.68 10^3/uL (3.29-11.43)
[2024-03-02 03:13] LABS: Adenovirus Not Detected (NOT DETECT); Chlamydia Pneumoniae Not Detected (NOT DETECT); Coronavirus 229E,HKU1,NL63,OC4 Not Detected (NOT DETECT); Human Metapneumovirus Not Detected (NOT DETECT); Human Rhinovirus/Enterovirus Not Detected (NOT DETECT); Influenza A Not Detected (NOT DETECT); Influenza A H1 Not Detected (NOT DETECT); Influenza A H1-2009 Not Detected (NOT DETECT); Influenza A H3 Not Detected (NOT DETECT); Influenza B Not Detected (NOT DETECT); Mycoplasma Pneumoniae Not Detected (NOT DETECT); Parainfluenza Virus Type 1 Not Detected (NOT DETECT); Parainfluenza Virus Type 2 Not Detected (NOT DETECT); Parainfluenza Virus Type 3 Not Detected (NOT DETECT); Parainfluenza Virus Type 4 Not Detected (NOT DETECT); Respiratory Syncytial Virus A Not Detected (NOT DETECT); Respiratory Syncytial Virus B Not Detected (NOT DETECT); SARS-COV-2 Not Detected (NOT DETECT)
[2024-03-02] MEDS: levothyroxine 50 mcg Tablet PO (06:34)
[2024-03-02] MEDS: amlodipine 5 mg Tablet PO (06:34)
[2024-03-02] MEDS: buPROPion XL (24 HR) 150 mg Tablet PO (06:39)
--- NOTE | 2024-03-02 06:48 | CTR_ITS ---
PROCEDURE INFORMATION: Exam: CTA Chest With Contrast Exam date and time: 03/02/2024 7:43 AM Age: 59 years old Clinical indication: Abnormal findings; Abnormal diagnostic tests; Elevated d-dimer; Additional info: Evaluate for pe, elevated d dimer TECHNIQUE: Imaging protocol: Computed tomographic angiography of the chest with contrast. Exam focused on the arteries. 3D rendering (Not supervised by radiologist): MIP and/or 3D reconstructed images were created by the technologist. Radiation optimization: All CT scans at this facility use at least one of these dose optimization techniques: automated exposure control; mA and/or kV adjustment per patient size (includes targeted exams where dose is matched to clinical indication); or iterative reconstruction. Contrast material: OMNI 350; Contrast volume: 100 ml; Contrast route: INTRAVENOUS (IV); COMPARISON: CT angio chest PE protcl [id number] 12/10/2018 11:18 PM RADIATION DOSE METRICS: Total DLP (mGy-cm): 440.77 FINDINGS: Pulmonary arteries: No pulmonary embolism evident. Aorta: No evidence of thoracic aortic aneurysm. Thyroid: No significant thyroid pathology. Lungs: Severe pulmonary emphysema and diffuse interstitial coarsening 3 mm perifissural nodule left mid lung zone on series 6, image 368 consistent with a small lymph node is not significantly changed. Few other tiny nodules measuring less than 5 mm are also stable consistent with benign pathology (example left upper lobe series 6, image 259 laterally, 3 mm pleural surface right upper lung zone series 6, image 287, etc.). Pleural spaces: No pleural effusion. Heart: Unremarkable. No cardiomegaly. No pericardial effusion. Lymph nodes: Compared with the prior exam, right hilar adenopathy measuring up to 1.7 cm short axis is not significantly changed. Left hilar adenopathy measuring up to 1.3 cm short axis is also stable. Borderline sized subcarinal lymph nodes measuring up to 1.3 cm short axis noted without change. Other sized mediastinal lymph nodes are also unchanged. Stable mildly enlarged left axillary node measuring 1.1 cm short axis. No right axillary adenopathy. Adrenal glands: Stable left adrenal thickening with low attenuation and without dominant nodule likely representing adenomatous hyperplasia. Right adrenal gland unremarkable. A plaque-like area of soft tissue thickening along the right hepatic lobe capsule on series 6, images 509 through 528 measuring up to 5 mm in thickness is not significantly changed, indeterminate by criteria but consistent with benign pathology given stability. Bones/joints: Prior ACDF. Mild degenerative change present in the spine. Soft tissues: Unremarkable. Other findings: Evaluation limited by respiratory degradation. CT/CT angio chest PE protcl [id number] IMPRESSION: 1. No evidence of pulmonary embolism or other acute chest disease. 2. Severe pulmonary emphysema. 3. Small pulmonary nodules consistent with benign pathology again seen. No further follow-up required per Fleischner criteria. 4. Stable mild hilar and borderline mediastinal lymphadenopathy. COMMENTS: The presence of pulmonary emphysema on CT is an independent risk factor for lung cancer. In the absence of a history or active diagnosis of lung cancer, it is recommended that this patient with emphysema be evaluated for enrollment in a low dose CT lung cancer screening program.
[2024-03-02] MEDS: iohexol 350 mg/mL 500 mL Btl (per mL) IV (08:10)
[2024-03-02] MEDS: ipratropium-albuterol 3 mL Neb INHALATION ×4 (08:40→19:52)
--- NOTE | 2024-03-02 09:08 | PC.CHAP ---
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 [] Patient/Family/Request visit [] Outpatient visit [] Follow-up visit [] Physician referral [] Code/Alert [] Routine visit [] Staff referral [] Actively dying [] Patient sleeping [] Family support [] [] Out of room [] Palliative care [] [x] Receiving care in room [] Pre-surgical visit [] Trauma [] Long length of stay [] ICU visit [] Other: Relational/Emotional Strength [] Patient feels connected with others/family/visitors/staff [] Distress [] Loneliness/isolation [] Abandonment Spirituality of Patient [] Person of Angelica [] Attends Yazidism of their Angelica [] Believes in Prayer [] Reads Bible or Zoroastrian materials [] There are Spiritual issues to be addressed Dialysis Rn Interventions [] Prayer [] Active listening [] Non-anxious presence [] Spiritual/emotional support [] Crisis/trauma care [] Spiritual counseling [] Bereavement support [] Provided bereavement packet [] Provided Bible/devotional materials [] Provided toy/stuffed animal, coloring book to patient or family member [] Provided Communion [] Anointing/[place] [] Salvation [] Completed spiritual assessment [] Other: Impact on Illness or Injury [] Angry [] Fearful [] Anxious [] Often cries [] Exhaustion [] Unable to work [] Unable to attend buddhism [] Unable to walk/stand [] Unable to read [] Unable to drive [] Unable to eat/drink [] Unable to sleep [] Unable to be with family [] Patient intubated [] Other: Summary Time spent with patient
[2024-03-02] MEDS: azithromycin 250 mg Tablet 500 MG PO (10:24)
[2024-03-02] MEDS: pantoprazole DR 40 mg Tablet PO (10:24)
[2024-03-02] MEDS: montelukast sodium 10 mg Tablet PO (11:33)
[2024-03-02] MEDS: benzonatate 100 mg Capsule PO (11:36)
[2024-03-02] MEDS: baclofen 10 mg Tablet 20 MG PO (11:36)
--- NOTE | 2024-03-02 14:30 | P.PN_ITS ---
Subjective 2 Subjective: Patient was seen this morning, she reports shortness of breath, wheezing, cough Vitals/I&O/Wt Last Vital Signs Temp 98.2 F 03/02/24 11:51 Pulse 104 H 03/02/24 11:51 Resp 16 03/02/24 11:51 BP 147/8 03/02/24 11:51 Pulse Ox 92 03/02/24 11:51 O2 Del Method Room Air 03/02/24 11:51 O2 Flow Rate 1 03/02/24 08:45 03/01/24 03/02/24 03/02/24 22:59 06:59 14:59 Intake Total 50 / 50 490 / 540 720 / 720 Balance 50 / 50 490 / 540 720 / 720 Weight last 48 hrs Weight 96.162 kg Weight 90.265 kg Weight 81.647 kg Physical Exam 2 Const: COMMON NORMALS: no acute distress and patient oriented x3 Resp: COMMON NORMALS: normal respiratory effort, No retractions and No use of accessory muscles AUSCULTATION: wheezes Cardio: COMMON NORMALS: regular rate, regular rhythm, S1 normal heart sound present and S2 normal heart sound present RATE: regular rate RHYTHM: r egular rhythm HEART SOUNDS: S1 normal heart sound present and S2 normal heart sound present GI: COMMON NORMALS: Normal to inspection, nondistended, normoactive bowel sounds present and non-tender Extremity: COMMON NORMALS: no pedal edema Neuro: COMMON NORMALS: patient oriented x3 Psych: COMMON NORMALS: mental status grossly normal Data 03/02/24 02:40 03/02/24 01:04 Micro: Microbiology 03/01/24 18:19 Blood Culture - Preliminary Blood SPECIMEN COLLECTED 03/01/24 18:10 Blood Culture - Preliminary Blood SPECIMEN COLLECTED A&P Assessment and plan (1) Acute respiratory failure with hypoxia: - In the setting of COPD exacerbation, possible pneumonia -Patient requiring 2 L supplemental oxygen -Wean oxygen as tolerated CTA CT/CT angio chest PE protcl [id number] IMPRESSION: 1. No evidence of pulmonary embolism or other acute chest disease. 2. Severe pulmonary emphysema. 3. Small pulmonary nodules consistent with benign pathology again seen. No further follow-up required per Fleischner criteria. 4. Stable mild hilar and borderline mediastinal lymphadenopathy. (2) Acute exacerbation of chronic obstructive airways disease: # Suspected pneumonia - Patient's lungs sounds severely diminished -Chest x-ray shows increased interstitial markings in the lung bases which is nonspecific, may be due to viral pneumonia versus small vessel airway disease vs bronchitis -Check respiratory viral panel, COVID-19, influenza screen, negative -Continue ceftriaxone and azithromycin started in the ER -Solu-Medrol 40 mg every 6 hours, DuoNebs -Continue to monitor closely (3) Hypothyroid: - Resume levothyroxine Qualifiers: Hypothyroidism type: acquired Qualified Code(s): E03.9 - Hypothyroidism, unspecified (4) Essential hypertension: - Resume antihypertensives (5) Post-traumatic stress disorder, chronic: - Resume antipsychotics Attestations 2 Medical Necessity Statement*: Patient requires hospitalization for pneumonia, COPD exacerbation Diagnoses Acute respiratory failure with hypoxia J96.01 Acute exacerbation of chronic obstructive airways disease J44.1 Acquired hypothyroidism E03.9 Hypothyroidism type: acquired Essential hypertension I10 Post-traumatic stress disorder, chronic F43.12
[2024-03-02] MEDS: gabapentin 300 mg Capsule 600 MG PO ×2 (16:27→20:59)
[2024-03-02] MEDS: isosorbide mononitrate ER 30 mg Tablet PO (18:15)
[2024-03-02] MEDS: quetiapine 100 mg Tablet 200 MG PO (20:59)
[2024-03-02] MEDS: atorvastatin 40 mg Tablet PO (20:59)
[2024-03-02] MEDS: enoxaparin 40 mg/0.4 mL Syringe SUBCUT (21:00)
[2024-03-02] MEDS: cefTRIAXone 1,000 MG in sodium chloride 0.9% (plus) 50 ML 100 MG IV (21:00)
[2024-03-03] VITALS (18 sets, daily range): BP systolic 108–163; BP diastolic 66–105; PULSE 76–99; RESP 17–19; TEMP 36.4–36.9; O2SAT 91–96
[2024-03-03] MEDS: methylPREDNISolone sod succ 40 mg/mL INJ IVP ×5 (00:18→23:50)
[2024-03-03] MEDS: buPROPion XL (24 HR) 150 mg Tablet PO (05:48)
[2024-03-03] MEDS: levothyroxine 50 mcg Tablet PO (05:48)
[2024-03-03] MEDS: amlodipine 5 mg Tablet PO (05:48)
[2024-03-03 06:18] LABS: Basophils % 0.1 %; Hematocrit 38.3 % (36-47); Lymphocytes # 1.1 10^3/uL (0.8-4.8); Mean Corpuscular HGB Conc 32.4 g/dL (30-55); Mean Corpuscular Hemoglobin 26.2 pg (27-33); Mean Corpuscular Volume 80.8 fl (85-98); Mean Platelet Volume 11.4 fL (7.4-10.4); Monocytes # 0.5 10^3/uL (0.2-0.9); Monocytes % 3.2 %; Neutrophils # 13.74 10^3/uL (1.8-7.7); Neutrophils % 89.1 %; Nucleated Red Blood Cells % 0 %; Platelet Count 177 10^3/cmm (157-399); Red Blood Count 4.74 10^6/uL (3.85-5.65); Red Cell Distribution Width 19.9 % (12.1-15.1); White Blood Count 15.43 10^3/uL (3.29-11.43)
[2024-03-03 06:35] LABS: Anion Gap 17.4 (5-19); Blood Urea Nitrogen 12 mg/dL (8-23); Calcium 9.5 mg/dL (8.5-10.5); Carbon Dioxide 22 mmol/L (22-29); Chloride 106 mmol/L (98-107); Creatinine Clr Calc Pharmacy 122.0971; Glucose 149 mg/dL (65-115); Osmolality Calculated 295 mOsm/kg (285-295); Potassium 4.4 mmol/L (3.5-5.1); Sodium 141 mmol/L (136-145)
[2024-03-03] MEDS: benzonatate 100 mg Capsule PO (07:02)
--- NOTE | 2024-03-03 07:08 | ECG_ITS ---
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 Measurements Intervals [place] Rate: 78 P: 63 [place]: 185 QRS: 34 QRSD: 75 T: 67 QT: 353 QTc: 404 Interpretive Statements SINUS RHYTHM WITH OCCASIONAL ECTOPIC PREMATURE COMPLEXES MODERATE ST DEPRESSION [0.05+ mV ST DEPRESSION] Compared to ECG 03/02/2024 02:04:48 ST (T wave) deviation now present T-wave abnormality no longer present Electronically Signed On 03-03-2024 8:10:26 CDT by Piter Epstein M.D. [id number]
[2024-03-03] MEDS: cloNIDine 0.1 mg Tablet 0.100000000000000006 MG PO ×2 (07:25→18:02)
[2024-03-03] MEDS: ipratropium-albuterol 3 mL Neb INHALATION ×4 (08:05→23:10)
[2024-03-03] MEDS: gabapentin 300 mg Capsule 600 MG PO ×3 (08:27→20:45)
[2024-03-03] MEDS: azithromycin 250 mg Tablet 500 MG PO (08:27)
[2024-03-03] MEDS: montelukast sodium 10 mg Tablet PO (08:27)
[2024-03-03] MEDS: pantoprazole DR 40 mg Tablet PO (08:27)
--- NOTE | 2024-03-03 11:42 | P.PN_ITS ---
Subjective 2 Subjective: Patient was seen this morning, continues to complain of wheezing, has a nonproductive cough Vitals/I&O/Wt Last Vital Signs Temp 97.9 F 03/03/24 07:41 Pulse 90 03/03/24 08:15 Resp 18 03/03/24 08:06 BP 163/103 03/03/24 07:41 Pulse Ox 93 03/03/24 08:06 O2 Del Method Nasal Cannula 03/03/24 08:06 O2 Flow Rate 2 03/03/24 08:06 03/02/24 03/03/24 03/03/24 22:59 06:59 14:59 Intake Total 1010 / 1730 360 / 2090 598 / 598 Output Total 1100 / 1100 Balance -90 / 630 360 / 990 598 / 598 Weight last 48 hrs Weight 94.619 kg Weight 96.162 kg Weight 90.265 kg Weight 81.647 kg Physical Exam 2 Const: COMMON NORMALS: no acute distress and patient oriented x3 Resp: COMMON NORMALS: normal respiratory effort, No retractions and No use of accessory muscles AUSCULTATION: crackles and wheezes Cardio: COMMON NORMALS: regular rate, regular rhythm, S1 normal heart sound present and S2 normal heart sound present RATE: regular rate RHYTHM: r egular rhythm HEART SOUNDS: S1 normal heart sound present and S2 normal heart sound present GI: COMMON NORMALS: Normal to inspection, nondistended, normoactive bowel sounds present and non-tender Extremity: COMMON NORMALS: no pedal edema Neuro: COMMON NORMALS: patient oriented x3 Psych: COMMON NORMALS: mental status grossly normal Data 03/03/24 05:45 03/03/24 05:45 Micro: Microbiology 03/01/24 18:19 Blood Culture - Preliminary Blood NEGATIVE TO DATE 03/01/24 18:10 Blood Culture - Preliminary Blood NEGATIVE TO DATE A&P Assessment and plan (1) Acute respiratory failure with hypoxia: - In the setting of COPD exacerbation, possible pneumonia -Patient requiring 2 L supplemental oxygen -Wean oxygen as tolerated CTA CT/CT angio chest PE protcl [id number] IMPRESSION: 1. No evidence of pulmonary embolism or other acute chest disease. 2. Severe pulmonary emphysema. 3. Small pulmonary nodules consistent with benign pathology again seen. No further follow-up required per Fleischner criteria. 4. Stable mild hilar and borderline mediastinal lymphadenopathy. (2) Acute exacerbation of chronic obstructive airways disease: # Suspected pneumonia - Patient's lungs sounds severely diminished -Chest x-ray shows increased interstitial markings in the lung bases which is nonspecific, may be due to viral pneumonia versus small vessel airway disease vs bronchitis -Check respiratory viral panel, COVID-19, influenza screen, negative -Continue ceftriaxone and azithromycin started in the ER -Solu-Medrol 40 mg every 6 hours, DuoNebs -Continue to monitor closely (3) Hypothyroid: - Resume levothyroxine Qualifiers: Hypothyroidism type: acquired Qualified Code(s): E03.9 - Hypothyroidism, unspecified (4) Essential hypertension: - Resume antihypertensives (5) Post-traumatic stress disorder, chronic: - Resume antipsychotics Plan Plan for today continue steroids, antibiotics, monitor respiratory status, blood pressure control Attestations 2 Medical Necessity Statement*: Patient requires hospitalization for acute hypoxic respiratory failure, secondary to COPD, pneumonia Diagnoses Acute respiratory failure with hypoxia J96.01 Acute exacerbation of chronic obstructive airways disease J44.1 Acquired hypothyroidism E03.9 Hypothyroidism type: acquired Essential hypertension I10 Post-traumatic stress disorder, chronic F43.12
[2024-03-03] MEDS: TRAMadol 50 mg Tablet PO (12:59)
[2024-03-03] MEDS: isosorbide mononitrate ER 30 mg Tablet PO (18:02)
[2024-03-03] MEDS: CLONazepam 1 mg Tablet PO (20:45)
[2024-03-03] MEDS: atorvastatin 40 mg Tablet PO (20:45)
[2024-03-03] MEDS: quetiapine 100 mg Tablet 200 MG PO (20:46)
[2024-03-03] MEDS: cefTRIAXone 1,000 MG in sodium chloride 0.9% (plus) 50 ML 100 MG IV (20:47)
[2024-03-03] MEDS: enoxaparin 40 mg/0.4 mL Syringe SUBCUT (20:50)
[2024-03-04] VITALS (22 sets, daily range): BP systolic 121–168; BP diastolic 72–96; PULSE 71–93; RESP 16–20; TEMP 36.4–36.8; O2SAT 90–95
[2024-03-04] MEDS: ipratropium-albuterol 3 mL Neb INHALATION ×6 (04:30→23:20)
[2024-03-04 05:42] LABS: Basophils % 0.1 %; Hematocrit 36.6 % (36-47); Lymphocytes % 7.6 %; Mean Corpuscular HGB Conc 31.4 g/dL (30-55); Mean Corpuscular Hemoglobin 25.6 pg (27-33); Mean Corpuscular Volume 81.5 fl (85-98); Monocytes # 0.4 10^3/uL (0.2-0.9); Monocytes % 2.7 %; Neutrophils # 11.47 10^3/uL (1.8-7.7); Neutrophils % 88.5 %; Nucleated Red Blood Cells % 0 %; Platelet Count 239 10^3/cmm (157-399); Red Blood Count 4.49 10^6/uL (3.85-5.65); Red Cell Distribution Width 19.6 % (12.1-15.1); White Blood Count 12.96 10^3/uL (3.29-11.43)
[2024-03-04] MEDS: levothyroxine 50 mcg Tablet PO (05:44)
[2024-03-04] MEDS: buPROPion XL (24 HR) 150 mg Tablet PO (05:44)
[2024-03-04] MEDS: amlodipine 5 mg Tablet PO (05:44)
[2024-03-04] MEDS: methylPREDNISolone sod succ 40 mg/mL INJ IVP ×2 (05:45→13:03)
[2024-03-04 06:03] LABS: Anion Gap 13.4 (5-19); Blood Urea Nitrogen 18 mg/dL (8-23); Calcium 9.2 mg/dL (8.5-10.5); Carbon Dioxide 25 mmol/L (22-29); Chloride 107 mmol/L (98-107); Creatinine Clr Calc Pharmacy 122.0115; Glucose 157 mg/dL (65-115); Osmolality Calculated 297 mOsm/kg (285-295); Potassium 4.4 mmol/L (3.5-5.1); Sodium 141 mmol/L (136-145)
[2024-03-04] MEDS: cloNIDine 0.1 mg Tablet 0.100000000000000006 MG PO ×2 (09:36→18:00)
[2024-03-04] MEDS: montelukast sodium 10 mg Tablet PO (09:36)
[2024-03-04] MEDS: gabapentin 300 mg Capsule 600 MG PO ×3 (09:36→21:12)
[2024-03-04] MEDS: pantoprazole DR 40 mg Tablet PO (09:37)
[2024-03-04] MEDS: azithromycin 250 mg Tablet 500 MG PO (09:37)
[2024-03-04] MEDS: benzonatate 100 mg Capsule PO ×2 (09:41→21:13)
[2024-03-04] MEDS: acetaminophen 325 mg Tablet 650 MG PO (10:39)
[2024-03-04] MEDS: TRAMadol 50 mg Tablet PO (13:25)
--- NOTE | 2024-03-04 13:42 | P.PN_ITS ---
Subjective 2 Subjective: Patient was seen this morning, she reports persistent wheezing, headache Vitals/I&O/Wt Last Vital Signs Temp 98.2 F 03/04/24 08:00 Pulse 83 03/04/24 11:14 Resp 16 03/04/24 11:07 BP 151/91 03/04/24 09:36 Pulse Ox 90 03/04/24 11:07 O2 Del Method Nasal Cannula 03/04/24 11:07 O2 Flow Rate 1 03/04/24 11:07 03/03/24 03/04/24 03/04/24 22:59 06:59 14:59 Intake Total 1200 / 2354 360 / 2714 960 / 960 Balance 1200 / 2354 360 / 2714 960 / 960 Weight last 48 hrs Weight 94.483 kg Weight 94.619 kg Physical Exam 2 Const: COMMON NORMALS: no acute distress and patient oriented x3 Resp: COMMON NORMALS: normal respiratory effort, No retractions, No use of accessory muscles and clear to auscultation bilaterally AUSCULTATION: clear to auscultation bilaterally Cardio: COMMON NORMALS: regular rate, regular rhythm, S1 normal heart sound present and S2 normal heart sound present RATE: regular rate RHYTHM: r egular rhythm HEART SOUNDS: S1 normal heart sound present and S2 normal heart sound present GI: COMMON NORMALS: Normal to inspection, nondistended, normoactive bowel sounds present and non-tender Extremity: COMMON NORMALS: no pedal edema Neuro: COMMON NORMALS: patient oriented x3 Psych: COMMON NORMALS: mental status grossly normal Data 03/04/24 05:03 03/04/24 05:03 A&P Assessment and plan (1) Acute respiratory failure with hypoxia: - In the setting of COPD exacerbation, possible pneumonia -Patient requiring 2 L supplemental oxygen -Wean oxygen as tolerated CTA CT/CT angio chest PE protcl [id number] IMPRESSION: 1. No evidence of pulmonary embolism or other acute chest disease. 2. Severe pulmonary emphysema. 3. Small pulmonary nodules consistent with benign pathology again seen. No further follow-up required per Fleischner criteria. 4. Stable mild hilar and borderline mediastinal lymphadenopathy. (2) Acute exacerbation of chronic obstructive airways disease: # Suspected pneumonia - Patient's lungs sounds severely diminished -Chest x-ray shows increased interstitial markings in the lung bases which is nonspecific, may be due to viral pneumonia versus small vessel airway disease vs bronchitis -Check respiratory viral panel, COVID-19, influenza screen, negative -Continue ceftriaxone and azithromycin started in the ER -Solu-Medrol 40 mg every 6 hours, DuoNebs -Continue to monitor closely (3) Hypothyroid: - Resume levothyroxine Qualifiers: Hypothyroidism type: acquired Qualified Code(s): E03.9 - Hypothyroidism, unspecified (4) Essential hypertension: - Resume antihypertensives (5) Post-traumatic stress disorder, chronic: - Resume antipsychotics Plan Plan for today continue steroids, antibiotics, monitor respiratory status, blood pressure control Attestations 2 Medical Necessity Statement*: Patient requires hospitalization for his COPD exacerbation pneumonia Diagnoses Acute respiratory failure with hypoxia J96.01 Acute exacerbation of chronic obstructive airways disease J44.1 Acquired hypothyroidism E03.9 Hypothyroidism type: acquired Essential hypertension I10 Post-traumatic stress disorder, chronic F43.12
[2024-03-04] MEDS: isosorbide mononitrate ER 30 mg Tablet PO (18:00)
[2024-03-04] MEDS: atorvastatin 40 mg Tablet PO (21:13)
[2024-03-04] MEDS: CLONazepam 1 mg Tablet PO (21:13)
[2024-03-04] MEDS: quetiapine 100 mg Tablet 200 MG PO (21:13)
[2024-03-04] MEDS: enoxaparin 40 mg/0.4 mL Syringe SUBCUT (21:14)
[2024-03-04] MEDS: cefTRIAXone 1,000 MG in sodium chloride 0.9% (plus) 50 ML 100 MG IV (21:16)
[2024-03-05] VITALS (10 sets, daily range): BP systolic 126–131; BP diastolic 82–87; PULSE 52–92; RESP 17–18; TEMP 36.4–36.9; O2SAT 85–97
[2024-03-05] MEDS: ipratropium-albuterol 3 mL Neb INHALATION ×2 (04:28→07:47)
[2024-03-05] MEDS: buPROPion XL (24 HR) 150 mg Tablet PO (06:18)
[2024-03-05] MEDS: amlodipine 5 mg Tablet PO (06:18)
[2024-03-05] MEDS: cloNIDine 0.1 mg Tablet 0.100000000000000006 MG PO (06:18)
[2024-03-05] MEDS: levothyroxine 50 mcg Tablet PO (06:18)
[2024-03-05 06:21] LABS: Basophils % 0.1 %; Eosinophils % 0.1 %; Lymphocytes # 2.3 10^3/uL (0.8-4.8); Lymphocytes % 21.5 %; Mean Corpuscular HGB Conc 31.1 g/dL (30-55); Mean Corpuscular Hemoglobin 25.2 pg (27-33); Mean Platelet Volume 9.8 fL (7.4-10.4); Monocytes # 0.7 10^3/uL (0.2-0.9); Monocytes % 6.4 %; Neutrophils # 7.62 10^3/uL (1.8-7.7); Neutrophils % 71.1 %; Nucleated Red Blood Cells % 0 %; Platelet Count 236 10^3/cmm (157-399); Red Blood Count 4.69 10^6/uL (3.85-5.65); Red Cell Distribution Width 19.7 % (12.1-15.1); White Blood Count 10.73 10^3/uL (3.29-11.43)
[2024-03-05 06:40] LABS: Blood Urea Nitrogen 15 mg/dL (8-23); Carbon Dioxide 27 mmol/L (22-29); Chloride 105 mmol/L (98-107); Creatinine Clr Calc Pharmacy 121.9259; Glucose 122 mg/dL (65-115); Osmolality Calculated 296 mOsm/kg (285-295); Sodium 142 mmol/L (136-145)
[2024-03-05] MEDS: predniSONE 20 mg Tablet 40 MG PO (08:32)
[2024-03-05] MEDS: montelukast sodium 10 mg Tablet PO (08:32)
[2024-03-05] MEDS: azithromycin 250 mg Tablet 500 MG PO (08:32)
[2024-03-05] MEDS: gabapentin 300 mg Capsule 600 MG PO ×2 (08:32→15:45)
[2024-03-05] MEDS: pantoprazole DR 40 mg Tablet PO (08:32)
--- NOTE | 2024-03-05 09:33 | PC.CHAP ---
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 [] Patient/Family/Request visit [] Outpatient visit [] Follow-up visit [] Physician referral [] Code/Alert [x] Routine visit [] Staff referral [] Actively dying [x] Patient sleeping [] Family support [] [] Out of room [] Palliative care [] [] Receiving care in room [] Pre-surgical visit [] Trauma [] Long length of stay [] ICU visit [] Other: Relational/Emotional Strength [] Patient feels connected with others/family/visitors/staff [] Distress [] Loneliness/isolation [] Abandonment Spirituality of Patient [] Person of Angelica [] Attends Jainism of their Angelica [] Believes in Prayer [] Reads Bible or Latter Day materials [] There are Spiritual issues to be addressed Community Services Coordinator Interventions [] Prayer [] Active listening [] Non-anxious presence [] Spiritual/emotional support [] Crisis/trauma care [] Spiritual counseling [] Bereavement support [] Provided bereavement packet [] Provided Bible/devotional materials [] Provided toy/stuffed animal, coloring book to patient or family member [] Provided Communion [] Anointing/Maxie [] Salvation [] Completed spiritual assessment [] Other: Impact on Illness or Injury [] Angry [] Fearful [] Anxious [] Often cries [] Exhaustion [] Unable to work [] Unable to attend hoahaoism [] Unable to walk/stand [] Unable to read [] Unable to drive [] Unable to eat/drink [] Unable to sleep [] Unable to be with family [] Patient intubated [] Other: Summary Time spent with patient
--- NOTE | 2024-03-05 11:09 | PM.DCS ---
Discharge Providers Date of Admission: 03/01/24 21:30 Date of Discharge: March 05, 2024 Attending Provider at Admission: Bhargavi Rod MD Attending Provider at Discharge: Silverio Brown Primary Care Provider: DENYS Carmona Diagnoses at Discharge Discharge Diagnosis (1) Acute respiratory failure with hypoxia: Status: Acute (2) Acute exacerbation of chronic obstructive airways disease: Status: Acute (3) Hypothyroid: Status: Acute Qualifiers: Hypothyroidism type: acquired Qualified Code(s): E03.9 - Hypothyroidism, unspecified (4) Essential hypertension: Status: Acute (5) Post-traumatic stress disorder, chronic: Status: Acute Reason for Visit Reason for Visit: SOB Hospital Course Hospital Course 59-year-old lady with COPD, smoking, was admitted for assessment treatment due to shortness of breath, found to have COPD exacerbation, pneumonia, treated with ceftriaxone, azithromycin, IV steroid, newly required oxygen support. Condition gradually improved, today she and her feel that they are doing well and ready to return home. Home oxygen evaluation is requested at discharge. She and her have been making attempts to quit smoking, and been smoking 2 packs/day. We discussed smoking cessation for 4 minutes, they are agreeable to nicotine patches and lozenges, requested. Continue supportive encourage smoking cessation. She additionally has ran out of Spiriva, as given a refill. Physical Exam Narrative: Accompanied by her . Pleasant, conversant. Const: COMMON NORMALS: patient oriented x3 and alert GENERAL APPEARANCE: cooperative ORIENTATION/CONSCIOUSNESS: Yes awake HENMT: COMMON NORMALS: oropharynx normal Neck/C-Spine: COMMON NORMALS: no JVD Resp: AUSCULTATION: rhonchi left lower and wheezes left lower Cardio: COMMON NORMALS: no JVD, regular rhythm, S1 normal heart sound present, S2 normal heart sound present and No murmurs present (Cardio) RHYTHM: regular rhythm HEART SOUNDS: S1 normal heart sound present and S2 normal heart sound present GI: COMMON NORMALS: Normal to inspection, nondistended, normoactive bowel sounds present, Soft to palpation and non-tender PALPATION: Yes Soft to palpation Extremity: COMMON NORMALS: no joint enlargement and no pedal edema Neuro: COMMON NORMALS: patient oriented x3 and moves all extremities SENSORIUM/ORIENTATION: Yes alert Skin: COMMON NORMALS: no rashes or lesions noted GENERAL SKIN EXAM: no rashes or lesions noted Discharge Data Studies Completed and Pending Completed Studies During Hospitalization Category Date Time Status CTA chest [CT angio chest PE protcl [id number]] Routine Cat Scan 03/02/24 06:48 Completed XR chest 1V portable [id number] Stat Exams 03/01/24 18:19 Completed Pending at discharge Category Date Time Status Blood Culture Stat Lab 03/01/24 18:19 Results Radiology Impressions Chest X-Ray 03/01/24 18:19 IMPRESSION: Increased interstitial markings in the lung bases are nonspecific but can be seen the setting of bronchitis, pulmonary vascular congestion, viral infection and small-vessel airways disease. Chest CTA 03/02/24 06:48 IMPRESSION: 1. No evidence of pulmonary embolism or other acute chest disease. 2. Severe pulmonary emphysema. 3. Small pulmonary nodules consistent with benign pathology again seen. No further follow-up required per Fleischner criteria. 4. Stable mild hilar and borderline mediastinal lymphadenopathy. COMMENTS: The presence of pulmonary emphysema on CT is an independent risk factor for lung cancer. In the absence of a history or active diagnosis of lung cancer, it is recommended that this patient with emphysema be evaluated for enrollment in a low dose CT lung cancer screening program. Laboratory Results WBC 10.73 10^3/uL (3.29-11.43) 03/05/24 05:21 Corrected WBC Cancelled 03/02/24 01:04 RBC 4.69 10^6/uL (3.85-5.65) 03/05/24 05:21 Hgb 11.80 g/dL (11.27-16.99) 03/05/24 05:21 Hct 38.0 % (36-47) 03/05/24 05:21 MCV 81.0 fl (85-98) L 03/05/24 05:21 MCH 25.2 pg (27-33) L 03/05/24 05:21 MCHC 31.1 g/dL (30-55) 03/05/24 05:21 RDW 19.7 % (12.1-15.1) H 03/05/24 05:21 Plt Count 236 10^3/cmm (157-399) 03/05/24 05:21 MPV 9.8 fL (7.4-10.4) 03/05/24 05:21 Gran % Cancelled 03/02/24 01:04 Neut % (Auto) 71.1 % 03/05/24 05:21 Lymph % (Auto) 21.5 % 03/05/24 05:21 [place] % (Auto) 6.4 % 03/05/24 05:21 Eos % (Auto) 0.1 % 03/05/24 05:21 Baso % (Auto) 0.1 % 03/05/24 05:21 Neut # (Auto) 7.62 10^3/uL (1.8-7.7) 03/05/24 05:21 Lymph # (Auto) 2.3 10^3/uL (0.8-4.8) 03/05/24 05:21 [place] # (Auto) 0.7 10^3/uL (0.2-0.9) 03/05/24 05:21 Eos # (Auto) 0.0 10^3/uL (0.0-0.8) 03/05/24 05:21 Baso # (Auto) 0.0 10^3/uL (0.0-0.1) 03/05/24 05:21 Absolute Gran (auto) Cancelled 03/02/24 01:04 Nucleated RBC % (auto) 0 % 03/05/24 05:21 Nucleated RBCs # 0.0 /100WBC 03/05/24 05:21 D-Dimer 0.88 ug/mLFEU (0-0.59) H 03/01/24 18:20 Sodium 142 mmol/L (136-145) 03/05/24 05:21 Potassium 4.0 mmol/L (3.5-5.1) 03/05/24 05:21 Chloride 105 mmol/L (98-107) 03/05/24 05:21 Carbon Dioxide 27 mmol/L (22-29) 03/05/24 05:21 Anion Gap 14.0 (5-19) 03/05/24 05:21 BUN 15 mg/dL (8-23) 03/05/24 05:21 Creatinine 0.6 mg/dL (0.5-0.9) 03/05/24 05:21 GFR Calculation 102.0 mL/min (90-130) 03/05/24 05:21 Glucose 122 mg/dL (65-115) H 03/05/24 05:21 Calculated Osmolality 296 mOsm/kg (285-295) H 03/05/24 05:21 Calcium 9.0 mg/dL (8.5-10.5) 03/05/24 05:21 Total Bilirubin 0.3 mg/dL (0.15-1.2) 03/01/24 18:20 AST 25 U/L (0-32) 03/01/24 18:20 ALT 22 U/L (0-33) 03/01/24 18:20 Alkaline Phosphatase 108 U/L (35-105) H 03/01/24 18:20 Troponin T Baseline 9 ng/L (0-10) 03/01/24 18:20 Troponin T 120 Minute 8.63 ng/L (0-10) 03/01/24 20:06 Delta Troponin T -0.37 ABS# (0-10) L 03/01/24 20:06 Troponin T Hi Sens 6Hr 6.87 ng/L (0-10) 03/02/24 01:04 Troponin T Hi Sens 6Hr Delta -2.13 ng/L (0-12) L 03/02/24 01:04 NT-Pro-B Natriuret Pep 104 pg/mL (0-125) 03/01/24 18:20 Total Protein 7.6 g/dL (6.6-8.7) 03/01/24 18:20 Albumin 4.5 g/dL (3.5-5.2) 03/01/24 18:20 Globulin 3.1 g/dL (1.3-4.6) 03/01/24 18:20 Procalcitonin 0.03 ng/mL (0-0.5) 03/01/24 20:06 Adenovirus (PCR) Not detected (NOT DETECT) 03/02/24 00:25 C. pneumoniae DNA (PCR) Not detected (NOT DETECT) 03/02/24 00:25 Coronavirus 229E (PCR) Not detected (NOT DETECT) 03/02/24 00:25 Human Metapneumovir PCR Not detected (NOT DETECT) 03/02/24 00:25 Influenza A (H1) PCR Not detected (NOT DETECT) 03/02/24 00:25 Influ A (H1/09) PCR Not detected (NOT DETECT) 03/02/24 00:25 Influenza A (H3) PCR Not detected (NOT DETECT) 03/02/24 00:25 Influenza Type A (PCR) Not detected (NOT DETECT) 03/02/24 00:25 Influenza Type B (PCR) Not detected (NOT DETECT) 03/02/24 00:25 M. pneumoniae (PCR) Not detected (NOT DETECT) 03/02/24 00:25 Parainfluenza 1 (PCR) Not detected (NOT DETECT) 03/02/24 00:25 Parainfluenza 2 (PCR) Not detected (NOT DETECT) 03/02/24 00:25 Parainfluenza 3 (PCR) Not detected (NOT DETECT) 03/02/24 00:25 Parainfluenza 4 (PCR) Not detected (NOT DETECT) 03/02/24 00:25 RSV Type A (PCR) Not detected (NOT DETECT) 03/02/24 00:25 RSV Type B (PCR) Not detected (NOT DETECT) 03/02/24 00:25 Entero/Rhino (PCR) Not detected (NOT DETECT) 03/02/24 00:25 SARS-CoV-2 (PCR) Not detected (NOT DETECT) 03/02/24 00:25 Vitals Last Vital Signs Temp 97.6 F 03/05/24 07:51 Pulse 78 03/05/24 07:55 Resp 18 03/05/24 07:55 BP 126/86 03/05/24 07:51 Pulse Ox 97 03/05/24 07:55 O2 Del Method Nasal Cannula 03/05/24 07:55 O2 Flow Rate 2.5 03/05/24 07:55 Discharge Plan Discharge Patient Disposition: Home Condition: Stable Prescriptions: New benzonatate 100 mg Capsule 100 mg PO TID PRN (Reason: Cough) Qty: 30 0RF nicotine 21 mg/24 hr patch 24 hour 1 patch transdermal Q24H Qty: 28 3RF prednisone 20 mg Tablet 20 mg PO DAILY Qty: 5 0RF cefdinir 300 mg capsule 300 mg PO BID 5 Days Qty: 10 0RF nicotine (polacrilex) 4 mg lozenge 4 mg buccal Q3H PRN (Reason: nicotine cravings) Qty: 108 3RF Continued loratadine 10 mg tablet 20 mg PO DAILY Qty: 60 6RF Rx Instructions: I realize this is a big dose. OK to dispense. hydroxyzine HCl 25 mg tablet 25 mg PO DAILY PRN (Reason: anxiety) Qty: 30 2RF amlodipine 5 mg tablet See Rx Instructions .ROUTE .COMPLEX Qty: 90 3RF Dose Instruction: TAKE 1 TABLET BY MOUTH DAILY Rx Instructions: TAKE 1 TABLET BY MOUTH DAILY pravastatin 40 mg tablet See Rx Instructions .ROUTE .COMPLEX Qty: 90 3RF Dose Instruction: TAKE 1 TABLET BY MOUTH DAILY Rx Instructions: TAKE 1 TABLET BY MOUTH DAILY bisacodyl 5 mg tablet,delayed release (DR/EC) See Rx Instructions .ROUTE .COMPLEX Qty: 30 0RF Dose Instruction: TAKE 1 TABLET BY MOUTH DAILY Rx Instructions: TAKE 1 TABLET BY MOUTH DAILY pantoprazole 40 mg tablet,delayed release (DR/EC) 40 mg PO DAILY Qty: 90 8RF cholecalciferol (vitamin D3) 625 mcg (25,000 unit) capsule 50,000 unit PO .weekly Qty: 14 5RF albuterol sulfate 90 mcg/actuation HFA aerosol inhaler See Rx Instructions .ROUTE .COMPLEX Qty: 18 0RF Dose Instruction: INHALE 2 TO 4 PUFFS BY MOUTH FOUR TIMES DAILY Rx Instructions: INHALE 2 TO 4 PUFFS BY MOUTH FOUR TIMES DAILY isosorbide mononitrate 30 mg tablet extended release 24 hr See Rx Instructions .ROUTE .COMPLEX Qty: 90 0RF Dose Instruction: TAKE 1 TABLET BY MOUTH EVERY EVENING Rx Instructions: TAKE 1 TABLET BY MOUTH EVERY EVENING quetiapine [Seroquel] 200 mg tablet 200 mg PO .QHS Qty: 30 2RF clonazepam 1 mg tablet 1 mg PO QDAY PRN (Reason: anxiety) Qty: 15 2RF Rx Instructions: 1/2 to 1 po daily nitroglycerin 0.3 mg tablet, sublingual See Rx Instructions .ROUTE .COMPLEX Qty: 100 0RF Dose Instruction: ONE TABLET UNDER TONGUE NEEDED FOR CHEST PAIN EVERY 5 MINUTES. DO NOT EXCEED 3 DOSES PER EPISODE. SEEK MEDICAL ATTENTION IF NO RELIEF. Rx Instructions: ONE TABLET UNDER TONGUE NEEDED FOR CHEST PAIN EVERY 5 MINUTES. DO NOT EXCEED 3 DOSES PER EPISODE. SEEK MEDICAL ATTENTION IF NO RELIEF. bupropion HCl [Wellbutrin XL] 150 mg tablet extended release 24 hr 150 mg PO QAM Qty: 30 2RF montelukast 10 mg tablet See Rx Instructions .ROUTE .COMPLEX Qty: 90 0RF Dose Instruction: TAKE 1 TABLET BY MOUTH DAILY Rx Instructions: TAKE 1 TABLET BY MOUTH DAILY gabapentin 600 mg tablet See Rx Instructions .ROUTE .COMPLEX Qty: 90 0RF Dose Instruction: TAKE 1 TABLET BY MOUTH THREE TIMES DAILY Rx Instructions: TAKE 1 TABLET BY MOUTH THREE TIMES DAILY celecoxib 100 mg capsule See Rx Instructions .ROUTE .COMPLEX Qty: 60 0RF Dose Instruction: TAKE 1 CAPSULE BY MOUTH TWICE DAILY Rx Instructions: TAKE 1 CAPSULE BY MOUTH TWICE DAILY levothyroxine 50 mcg tablet See Rx Instructions .ROUTE .COMPLEX Qty: 30 0RF Dose Instruction: TAKE 1 TABLET BY MOUTH DAILY Rx Instructions: TAKE 1 TABLET BY MOUTH DAILY baclofen 20 mg Tablet 20 mg PO TID omeprazole 20 mg Tablet,Disintegrat, Delay Rel 20 mg PO DAILY PRN (Reason: Acid Reflux) Stool Softener-Stimulant Laxat 8.6-50 mg Capsule 1 tab-cap PO BID PRN (Reason: Constipation) Spiriva with HandiHaler 18 mcg capsule, w/inhalation device See Rx Instructions .ROUTE .COMPLEX Qty: 30 0RF Dose Instruction: INHALE CONTENTS OF 1 CAPSULE ONCE DAILY WITH 2 PUFFS USING HANDIHALER Rx Instructions: INHALE CONTENTS OF 1 CAPSULE ONCE DAILY WITH 2 PUFFS USING HANDIHALER Discharge Orders: Discharge Order (Routine); Ordered 03/05/24 Ordered By: Silverio Brown Referrals: Ashanti Olivares FNP [Primary Care Provider] - 03/16/24 1:20 pm Discharge Diet: Cardiac Discharge Activity: Increase activity as tolerated and Oxygen as instructed Patient Instructions: Prednisone (By mouth), Nicotine (Into the mouth), Nicotine (Absorbed through the skin), Cefdinir (By mouth), Tiotropium (By breathing), How to Stop Smoking (GEN), Cigarette Smoking and Your Health (GEN), Using Oxygen at Home (GEN), Emphysema (GEN) Activity Restrictions/Additional Instructions: Please continue your efforts to stop smoking. Follow-up with your primary doctor for reassessment after exacerbation of COPD. Complete antibiotic and steroid course. Seek medical attention in case of any worsening or new concerning symptoms. Continue to monitor blood pressures 3 times daily, write down values to bring to your appointment. Continue to work with your primary doctor to optimize blood pressure control. Consider discontinuing celecoxib due to risk of blood pressure, risk of heart attack and stroke. Discharge Attestations Time Spent in Discharge Care*: greater than 30 min Quality Metrics Clinical Quality Measures [ No reported AMI, CVA or VTE this stay] Coding Level of Care Code 89182 Total time (in minutes) for Discharge: 50 Diagnoses Acute respiratory failure with hypoxia J96.01 Acute exacerbation of chronic obstructive airways disease J44.1 Acquired hypothyroidism E03.9 Hypothyroidism type: acquired Essential hypertension I10 Post-traumatic stress disorder, chronic F43.12
== END 2024-03-05 16:58 | disposition home or self-care (01) | DRG 190 ==
LOC: ER 20:33 → MEDSURG 21:31
PROVIDERS: Family Medicine; Admitting Provider Student in an Organized Health Care Education/Training Program; Emergency Provider Emergency Medicine; PCP Registered Nurse; Visit Provider Internal Medicine
DX: J44.0 Chronic obstructive pulmonary disease with (acute) lower respiratory infection (principal); J18.9 Pneumonia, unspecified organism; J96.01 Acute respiratory failure with hypoxia; J44.1 Chronic obstructive pulmonary disease with (acute) exacerbation; E03.9 Hypothyroidism, unspecified; I10 Essential (primary) hypertension; F17.210 Nicotine dependence, cigarettes, uncomplicated; F43.12 Post-traumatic stress disorder, chronic
CPT/HCPCS: 12345; 36415; 71045; 71275; 80048; 80053; 83880; 84145; 84484; 85025; 85378; 87040; 87486; 87581; 87633; 93005; 94640; 94760; 96365; 96367; 96372; 96375; 99285; J0456; J0696; J1650; J2919; J7050; J7512; J7613; Q0144; Q9967

== ENCOUNTER → 2024-04-11 10:40 | Outpatient (BNVA) | payer MEDICAID, SELFPAY | PROVIDERS: PCP Registered Nurse; Visit Provider Registered Nurse | DX: E03.9 Hypothyroidism, unspecified (principal); I10 Essential (primary) hypertension; R73.09 Other abnormal glucose | CPT/HCPCS: 80053; 83036; 84443; 85025 ==

== ENCOUNTER → 2024-07-27 11:30 | Outpatient (BNVA) | payer MEDICAID, SELFPAY | PROVIDERS: PCP Registered Nurse; Visit Provider Registered Nurse | DX: J44.1 Chronic obstructive pulmonary disease with (acute) exacerbation (principal) | CPT/HCPCS: 85025 ==

== ENCOUNTER → 2025-02-19 13:26 | Outpatient (BNVA) | payer OTHER, SELFPAY | PROVIDERS: PCP Registered Nurse; Visit Provider Registered Nurse | DX: I10 Essential (primary) hypertension (principal); N39.0 Urinary tract infection, site not specified | CPT/HCPCS: 80048; 81000; 85025; 87086 ==

== ENCOUNTER → 2025-05-09 14:43 | Outpatient (BNVA) | payer MEDICAID, SELFPAY | PROVIDERS: PCP Registered Nurse; Visit Provider Registered Nurse | DX: R60.9 Edema, unspecified (principal); J44.9 Chronic obstructive pulmonary disease, unspecified; I10 Essential (primary) hypertension | CPT/HCPCS: 83880; 84443; 85025 ==

== ENCOUNTER 2025-05-23 13:22 | Outpatient (CLI) | payer MEDICAID, SELFPAY ==
--- NOTE | 2025-05-23 14:00 | CT_ITS ---
WS: [id number] LDCT LUNG CANCER SCREENING TECHNIQUE: Noncontrast CT of the chest with coronal and sagittal reformatted images. CLINICAL INFORMATION: Z87.891 - Personal history of nicotine dependence COMPARISON: None. DLP: 76.71 mGy.cm DIvol: Mean CTDIvol: 1.50 (mGy) All CT scans at [facility] use at least one of these dose optimization techniques: automated exposure control; mA and/or kV adjustment per patient size (includes targeted exams where dose is matched to clinical indication); or iterative reconstruction. FINDINGS: 6 mm nodule RIGHT upper lobe lobe with feeding prominent vessel. This is unchanged since 2023. Pleural-based nodule with parenchymal scarring RIGHT upper lobe posteriorly measuring 6 mm 5 mm nodule RIGHT upper lobe laterally Subsegmental atelectasis RIGHT lower lobe. Advanced chronic emphysematous changes. Normal caliber thoracic aorta. Calcification. Small esophageal hiatal hernia. Moderate thoracic kyphosis. Postoperative changes lower cervical spine. CT/CT lung screening [id number] IMPRESSION: LUNG-RADS: 2-Benign Appearance or Behavior FOLLOW UP: 12 Month: Continue annual screening with LDCT
== END 2025-05-23 13:23 | disposition home or self-care (01) ==
LOC: RAD 13:26
PROVIDERS: PCP Registered Nurse; Visit Provider Registered Nurse
DX: Z87.891 Personal history of nicotine dependence (principal)
CPT/HCPCS: 71271

== ENCOUNTER 2025-07-24 12:38 | Outpatient (CLI) | payer MEDICAID, SELFPAY ==
--- NOTE | 2025-07-24 12:40 | MM_ITS ---
WS: [id number] BILATERAL 3D TOMOSYNTHESIS DIGITAL SCREENING MAMMOGRAPHY WITH CAD CLINICAL INFORMATION: SCREENING HISTORY: Screening mammogram. No current complaints. COMPARISON: 2021 TECHNIQUE: Bilateral CC and MLO views. FINDINGS: Scattered fibroglandular densities bilaterally. No suspicious focal mass, asymmetry, calcifications, or architectural distortion. No evidence of malignancy. MM/MM scr BI tomosynthesis [id number] IMPRESSION: DENSITY: There are scattered areas of fibroglandular density. BI-RADS: 1 - Negative. FOLLOW UP: 1 Year Follow-up Recommend return to annual screening mammography.
== END 2025-07-24 12:39 | disposition home or self-care (01) ==
LOC: MOBLMAM 12:38
PROVIDERS: PCP Registered Nurse; Visit Provider Registered Nurse
DX: Z12.31 Encounter for screening mammogram for malignant neoplasm of breast (principal); R92.323 Mammographic fibroglandular density, bilateral breasts
CPT/HCPCS: 77063; 77067